=== PATIENT | female | born 1945 | race Caucasian/White ===

== ENCOUNTER 2025-08-21 09:58 | Emergency (ER) | payer MEDICARE, MEDICAID ==
[~2025-08-21] VITALS: Ht 147.3 cm; Wt 49.1 kg
--- NOTE | 2025-08-21 10:41 | Physician Documentation ---
History of Present Illness General Chief Complaint: Extremity Swelling Stated Complaint: SWOLLEN LEG Time Seen by MD: 10:20 History of Present Illness Initial Comments 79-year-old female referred to the emergency department for evaluation of right lower leg swelling with warmth. Patient and family report right lower foot and lower extremity swelling for one day with mild redness. No prior history of the same. No reported shortness of breath, palpitations and/or prior history of the same. Medication Reconciliation Allergies: Coded Allergies: No Known Allergies (Unverified , 08/21/25) Scheduled Doxycycline Monohydrate (Doxycycline Monohydrate), 100 MG PO BID Ibuprofen* (Motrin*), 1 TAB PO Q8H Review of Systems All Other Systems at this time: Reviewed and Negative Constitutional: Denies: fever, chills Musculoskeletal Right lower extremity Physical Exam Physical Exam Vital Signs: RN Vital Signs have been reviewed: Yes, Temperature: 98.5, Source: Temporal, Heart Rate: 87, Respiratory Rate: 18, BP: 120/67, Pulse Oximetry: 99, Weight: 49.100 Oxygen Flow Rate: 0 General Appearance: alert, WD/WN, mild distress, thin Head: normal inspection Face: normal inspection Pupils/EOM/Fundus: PERRLA Respiratory: no respiratory distress Chest: no accessory muscle use Neurologic: oriented x4 Motor / Sensory: no motor deficit, no sensory deficit Psychiatric: normal mood/affect Skin: warm/dry, erythema (Mild erythema to the distal tibia) Lymphatic: no adenopathy Progress Results/Orders Results/Orders Orders - LYNETTE TAMAYO PAC Vl Venous (08/21/25 10:27) Completed Orders - LYNETTE TAMAYO PAC Vl Venous (08/21/25 10:27) Vital Signs 08/21/25 08/21/25 08/21/25 08/21/25 10:05 12:19 12:24 12:51 Temp 98.5 98.1 98.6 Pulse 87 76 73 Resp 18 12 16 B/P (MAP) 120/67 121/63 (82) 142/67 Pulse Ox 99 99 95 O2 Flow Rate 0 Medical Decision Making Additional information obtaine: family Findings Examination and history warrants ultrasound imaging of the lower extremity to evaluate for occlusive etiology. Ultrasound imaging reassuring for no infectious process. Patient is discharged in the emergency department into family with outpatient prescription for antibiotics for early cellulitis. Recommend close follow up with the primary care and to return to the emergency department with worse. Differential Diagnosis Differentials include but not limited: Working diagnosis of Cellulitis w/o DVT, obvious abscess or lymphangitis and other unforeseen vaso-occlusive etiologies. Departure Disposition: HOME / SELF CARE / HOMELESS Impression: Primary Impression: Lower extremity cellulitis Qualified Codes: L03.115 - Cellulitis of right lower limb Condition: Stable Additional Instructions: Ultrasound imaging obtained today in the emergency department is reassuring for no new DVT. Please begin medications for superficial skin infection as directed and make follow up appointment with the primary care physician. Please return to the emergency department if symptoms worsen. Thank you for visiting [facility]. Referrals: NO PRIMARY CARE PROVIDER (PCP) Prescriptions Ibuprofen* (Motrin*) 400 Mg Tablet 1 TAB PO Q8H for pain or fever for 10 Days, #30 TAB Prov: LYNETTE TAMAYO 08/21/25 Doxycycline Monohydrate (Doxycycline Monohydrate) 100 Mg Capsule 100 MG PO BID, #20 CAP may sub doxycycline hyclate or azithromycin z-pack as prescribed Prov: LYNETTE TAMAYO 08/21/25 Education Educated: Patient, Family Educated regarding: diagnosis, treatment, prognosis, need for follow up Signature Scribe Signature: . Attestation: . LYNETTE TAMAYO Aug 21, 2025 10:41
--- NOTE | 2025-08-21 12:25 | VASCULAR REPORT ---
Technique: Real-time ultrasound imaging, with color Doppler and compression of the right common femoral vein, femoral vein, greater saphenous vein, and popliteal vein. Indication: Right lower extremity edema Comparison: None Findings: There is normal compressibility and flow augmentation in all of the imaged deep veins. The right great saphenous vein contains echogenic thrombus above the knee. Right lower extremity soft tissue edema. Left common femoral vein compressible and patent. Impression: No evidence of DVT in the right lower extremity. 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
[2025-08-21] MEDS ORDERED: IBUP-1984 PO (12:45)
[2025-08-21] MEDS ORDERED: DOXY100C43 PO (12:45)
[2025-08-21 12:51] VITALS: BP 142/67; PULSE 73; RESP 16; TEMP 98.6; O2SAT 95
[2025-08-22] MEDS ORDERED: CEPH-585 PO (21:07)
== END 2025-08-21 12:54 | disposition home or self-care (01) ==
LOC: ER 09:59
DX: L03.115 Cellulitis of right lower limb (principal)
CPT/HCPCS: 93971; 99284

== ENCOUNTER 2025-08-22 16:09 | Emergency (ER) | payer MEDICARE, MEDICAID ==
[~2025-08-22] VITALS: Ht 154.9 cm; Wt 56.0 kg
[~2025-08-22 16:09] MED LIST: DOXY100C43 PO; IBUP-1984 PO
[2025-08-22 16:12] VITALS: TEMP 98.6
[2025-08-22 16:50] LABS: MEAN PLATELET VOLUME 8.7 FL (7.4-10.4); RED CELL DISTRIBUTION WIDTH 14.2 % (11.5-14.5)
[2025-08-22 17:04] LABS: CREATININE 0.71 MG/DL (0.40-0.90); TOTAL CARBON DIOXIDE 24.9 MMOL/L (24-32); eCRCL 48 ML/MIN; eGFR 79 ML/MIN
--- NOTE | 2025-08-22 19:40 | Physician Documentation ---
History of Present Illness ~ Chief Complaint: Urinary Symptoms Stated Complaint: UTI SYMPTOMS Time Seen by MD: 19:23 HPI This is a 79-year-old female who presents accompanied by family member with multiple concerns including difficulty urinating, increased swelling and pain to her right calf and adame, increased confusion, and concern for several months of vaginal spotting. Patient was seen here yesterday for increased pain and swelling to her right calf and adame and has been seen by primary care for vaginal spotting. Patient reports no abdominal pain or pain with urination. No fevers reported. Patient's family member reports she has been scheduled for a CT with contrast of the abdomen due to the spotting. Medication Reconciliation Allergies: Coded Allergies: No Known Allergies (Unverified , 08/21/25) Scheduled Cephalexin*Monohydrate* (Keflex*), 1 CAP PO QID Doxycycline Monohydrate (Doxycycline Monohydrate), 100 MG PO BID Ibuprofen* (Motrin*), 1 TAB PO Q8H Review of Systems ROS As stated above in the HPI, otherwise all systems are reviewed and negative. Physical Exam Vital Signs: Temperature: 98.6, Source: Temporal, Heart Rate: 66, Respiratory Rate: 22, BP: 127/59, Pulse Oximetry: 92, Weight: 56.000 Oxygen Flow Rate: 0 General Appearance VITALS: Reviewed and as above. GENERAL: Alert, nontoxic appearing, no apparent distress. RESPIRATORY: No increased work of breathing, no respiratory distress, speaking in full clear sentences, clear lung sounds in all wolf CV: Nonpitting edema to right lower extremity GI: Soft, nontender, no rebound, no guarding, bowel sounds present. No CVA tenderness MUSCULOSKELETAL: Right lower extremity swollen compared to left, tender to palpation greatest in anterior, anterior left adame tender to palpation SKIN: Bilateral anterior shins mildly erythematous Progress Results/Orders Results/Orders Orders - TAYLOR BARRON Bladder Scan (08/22/25 ) Completed Orders - TAYLOR BARRON Cephalexin Capsule (Keflex Capsule) (08/22/25 21:00) Medications Received in ER Medications (Trade) Dose Ordered Sig/Kiran Route PRN Reason Start Time Stop Time Status Last Admin Dose Admin (Keflex capsule) 500 mg ONCE ONCE PO 08/22/25 21:00 08/22/25 21:01 DC 08/22/25 21:10 500 MG Vital Signs 08/22/25 08/22/25 16:12 22:36 Temp 98.6 Pulse 66 68 Resp 22 16 B/P (MAP) 127/59 122/68 Pulse Ox 92 98 O2 Flow Rate 0 Laboratory Tests Test 08/22/25 16:31 08/22/25 19:15 White Blood Count 6.4 Red Blood Count 4.13 L Hemoglobin 11.6 L Hematocrit 34.9 L Mean Corpuscular Volume 84.5 Mean Corpuscular Hemoglobin 28.1 Mean Corpuscular Hemoglobin Concent 33.3 Red Cell Distribution Width 14.2 Platelet Count 255 Mean Platelet Volume 8.7 Neutrophils (%) (Auto) 63.8 Lymphocytes (%) (Auto) 23.4 Monocytes (%) (Auto) 9.4 Eosinophils (%) (Auto) 2.5 Basophils (%) (Auto) 0.9 Neutrophils # (Auto) 4.1 Lymphocytes # (Auto) 1.5 Monocytes # (Auto) 0.6 Eosinophils # (Auto) 0.2 Basophils # (Auto) 0.1 CBC Comment Sodium Level 139 Potassium Level 3.7 Chloride Level 105 Carbon Dioxide Level 24.9 Anion Gap 9 Blood Urea Nitrogen 12 Creatinine 0.71 Estimated GFR/1.73 m2 79 BUN/Creatinine Ratio 16.9 Glucose Level 87 Calcium Level 9.1 Total Bilirubin 0.6 Aspartate Amino Transf (AST/SGOT) 29 Alanine Aminotransferase (ALT/SGPT) 19 Alkaline Phosphatase 64 Total Protein 6.8 Albumin 3.3 L Globulin 3.5 Albumin/Globulin Ratio 0.9 L Lipase 39 Chemistry Comments Urine Specimen Description Non-specified Urine Color Yellow Urine Clarity Slightly cloudy Urine pH 8.0 Urine Specific [place] 1.015 Urine Protein Negative Urine Glucose (UA) Negative Urine Ketones Negative Urine Occult Blood Moderate H Urine Nitrite Negative Urine Bilirubin Negative Urine Urobilinogen 0.2 Urine Leukocyte Esterase Small H Urine RBC 10-20 Urine WBC 5-10 H Urine Squamous Epithelial Cells Few Urine Amorphous Phosphates 2+ Urine Bacteria Few Urine Mucus None seen Urine Culture Indicated Indicated Volume Urine Centrifuged 10 ml Urine Comment Microbiology Date/Time Source Procedure Growth Status 08/22/25 20:07 Urine Nonspecified Urine Culture - Preliminary Culture received. 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 Patient is otherwise well-appearing with a benign physical exam, lab work significant for evidence of urinary tract infection on UA, otherwise lab work benign without evidence of infection, metabolic, or electrolyte derangement. Additionally reassuring patient reported no fevers and is afebrile in department. A bladder scan was conducted by nursing which did not demonstrate evidence of urinary retention. Given patient was seen yesterday and diagnosed with cellulitis and urinalysis today demonstrate evidence of urinary tract infection she will be changed from doxycycline to Keflex to treat both conditions, patient is appropriate for outpatient follow up and has primary care appointment tomorrow. Patient and family member provided home care instructions return to care precautions, and follow up instructions which they verbalized understanding of. Differential Dx:Considerations: Include: huff's cyst, Cancer, Cellulitis, Congestive heart failure, Compartment syndrome, Deep venous thrombosis, Malnutrition, Popliteal vein aneurysm, Strain, Superfic thrombophlebitis, Venous insufficiency Additional Comment Additional differential diagnosis considered: Pyelonephritis, metabolic encephalopathy, urinary tract infection, urinary obstruction, urolithiasis, urinary retention Departure Time of Disposition: 21:07 Disposition: 01 HOME / SELF CARE / HOMELESS Impression: Primary Impression: Acute urinary tract infection Condition: Improved Discharge Instructions: Urinary Tract Infection, Adult Additional Instructions: Please take the antibiotics as prescribed, stopped taking the doxycycline and start taking the Keflex. Continue to use ibuprofen and or Tylenol as needed for pain as directed by [id number] packaging. Please follow up with your primary care provider in the next few days. Please return to the emergency department for any new or worsening concerning symptoms including but not limited to worsening pain and swelling to the legs, increased confusion, or if she develops a fever over 100.4 that does not lower with ibuprofen or Tylenol. Referrals: NO PRIMARY CARE PROVIDER (PCP) Prescriptions Cephalexin*Monohydrate* (Keflex*) 500 Mg Capsule 1 CAP PO QID for 7 Days, #28 CAP Prov: TAYLOR BARRONP 08/22/25 Education Educated: Patient, Family Educated regarding: diagnosis, treatment, prognosis, need for follow up Signature Scribe Signature: No scribe Attestation: The note accurately reflects work and decisions made by me.MARILYN Greer 08/23/25 01:18 TAYLOR BARRON Aug 22, 2025 19:40
[2025-08-22 19:59] LABS: LEUKOCYTE ESTERASE ,URINE SMALL (Neg); NITRITES, URINE NEGATIVE (Neg); OCCULT BLOOD,URINE MODERATE (Neg); UA COLLECTION TYPE NON-SPECIFIED
[2025-08-22 20:08] LABS: AMORPHOUS PHOSPHATES 2+; MUCUS STRANDS NONE SEEN /LPF (Neg); SQUAMOUS EPITHELIAL CELL,UR FEW /LPF (FEW)
[2025-08-22] MEDS ORDERED: CEPH-585 PO (21:07)
[2025-08-22 22:36] VITALS: BP 122/68; PULSE 68; RESP 16; O2SAT 98
== END 2025-08-22 22:40 | disposition home or self-care (01) ==
LOC: ER 16:09
DX: N39.0 Urinary tract infection, site not specified (principal); Z79.899 Other long term (current) drug therapy
CPT/HCPCS: 36415; 51798; 80053; 81001; 83690; 85025; 87088; 99284

== ENCOUNTER 2025-08-29 07:28 | Outpatient (CLI) | payer MEDICARE, MEDICAID ==
[~2025-08-29 07:28] MED LIST changes: +CEPH-585 PO
[2025-08-29] MEDS ORDERED: GADOTERATE MEGLUMINE 7.5 MMOL/15 ML VIAL IV ONE (10:36)
--- NOTE | 2025-08-29 11:33 | RADIOLOGY REPORT ---
CLINICAL HISTORY: OTHER SPECIFIED NONINFLAMMATORY DISORDERS OF UTERUS,POSTMENOPAUSAL BLEEDING. TECHNIQUE: Multi sequence multi planar MRI images of the abdomen were obtained prior to and after the uneventful administration of Clariscan contrast. COMPARISON: None. FINDINGS: Respiratory motion artifact limits evaluation. Patient was unable to follow breath hold instructions. Multiple T2 hyperintense lesions are seen in the liver, with the largest measuring up to 8.1 cm in greatest dimension. No definite internal enhancement demonstrated on multiphase postcontrast images given the limitations of the examination. No abnormality identified in the spleen, pancreas, adrenal glands, or kidneys given the limitations of the examination. No abdominal aortic aneurysm. IMPRESSION: 1. Motion limited study. 2. T2 hyperintense lesions in the liver, with the largest measuring up to 8.1 cm in greatest dimension. No internal postcontrast enhancement demonstrated on multiphase images, given the limitations of the examination. 3. No other abnormality identified in the abdomen given the limitations of the examination.
--- NOTE | 2025-08-29 13:28 | RADIOLOGY REPORT ---
CLINICAL HISTORY: POSTMENOPAUSAL BLEEDING,OTHER SPECIFIED NONINFLAMMATORY DISORDERS OF UTERUS. TECHNIQUE: Multi sequence multi planar MRI images of the pelvis were obtained prior to and after the uneventful administration of 10 mL Clariscan contrast. COMPARISON: None. FINDINGS: Motion artifact limits evaluation. The uterus is anteverted and measures approximately 8.9 x 6.3 x 7.2 cm. Endometrial thickness measures up to 0.7 cm, abnormally thickened for postmenopausal. Multiple fibroids are seen in the uterus, with the largest at the ventral aspect of the body of the uterus measuring up to 4.8 cm in greatest dimension, abutting the endometrial canal. There is a small intracavitary fibroid at the body of the uterus measuring up to 0.9 cm. There are also subserosal fibroids and intramural fibroids. 1.3 cm cyst in the right ovary. Small cysts in the left ovary measuring up to 1 cm. No pelvic lymphadenopathy. No free fluid. No suspicious postcontrast enhancement. IMPRESSION: 1. Thickened endometrium, up to 0.7 cm. may be seen with hyperplasia. Endometrial carcinoma can not be excluded. Correlate with clinical findings. Endometrial biopsy could be considered if not already done. 2. Fibroid uterus as detailed above, including intracavitary fibroid. 3. Small cysts in both ovaries. Per consensus statement of the society of radiologists in ultrasound, cysts greater than 1 and less than or equal to 7 cm in postmenopausal women are almost certainly benign, yearly follow-up, at least initially with ultrasound recommended.
== END 2025-08-29 23:59 | disposition home or self-care (01) ==
LOC: MRI 07:28
PROVIDERS: ATTEND Nurse Practitioner Family
DX: K76.9 Liver disease, unspecified (principal); N95.0 Postmenopausal bleeding; N85.8 Other specified noninflammatory disorders of uterus
CPT/HCPCS: 72197; 74183; A9575